=== PATIENT | male | born 1980 | race Caucasian/White ===

== ENCOUNTER 2018-02-06 12:47 | Emergency (ER) | payer OTHER ==
[~2018-02-06] VITALS: Ht 172.7 cm; Wt 83.9 kg
[~2018-02-06 12:47] MED LIST: HYDMOR2 PO; PROM25 PO; TRAACE PO
[2018-02-06] MEDS ORDERED: Bactrim Ds Tab1 EACH PO (13:22)
== END 2018-02-06 13:25 | disposition home or self-care (01) ==
LOC: ER 12:47
DX: L03.115 Cellulitis of right lower limb (principal); R59.0 Localized enlarged lymph nodes; Z87.891 Personal history of nicotine dependence; Z79.2 Long term (current) use of antibiotics
CPT/HCPCS: 99282

== ENCOUNTER → 2018-11-12 | Outpatient (CLI) | payer OTHER ==
[~2018-11-12] MED LIST changes: +Bactrim Ds Tab1 EACH PO
[2018-11-12 16:42] LABS: Source, Urine Clean Catch
[2018-11-12 19:03] LABS: Bilirubin, Urine Neg (Neg); Blood, Urine Neg (Neg); Glucose Qualitative, Urine Neg (Neg); Ketones, Urine Neg (Neg); Leukocyte Esterase, Urine Neg (Neg); Nitrite, Urine Neg (Neg); Protein, Urine Neg (Neg); Urobilinogen, Urine NORM (Normal); pH, Urine 6.5 (5.0-8.0)
[2018-11-12 19:22] LABS: Appearance, Urine Clear (Clear); Color, Urine Yellow (P-Yellow)
== END ==
LOC: LAB 16:41 → LAB SHORT 16:41
PROVIDERS: Nurse Practitioner Family
DX: R30.0 Dysuria (principal)
CPT/HCPCS: 81003